=== PATIENT | male | born 1940 | race African-American/Black ===

== ENCOUNTER 2025-02-25 20:54 | Observation (INO) ==
[2025-02-25 21:04] VITALS: BMI 18.1
[2025-02-25 21:23] LABS: RED CELL DISTRIBUTION WIDTH 15.5 % (11.6-16.5)
[2025-02-25 21:29] LABS: MEAN PLATELET VOLUME 8.5 fL (7.4-11.0)
--- NOTE | 2025-02-25 21:52 | DR.EXTPAIN ---
HPI Time seen Time Seen by Provider: 02/25/25 21:50 PCP Primary Care Physician: mary Complaint/Symptoms Chief Complaint Doctor Comments: Patient had a stent placed in his Left leg yesterday by Dr. Richard and he continued to bleed so he was brought here to today to be admitted for further evaluation and treatment. Dr. Richard did come in and see this patient but since he came to the ER i needed to lay eyes on this patient. Chief Complaint:: surgical site bleeding from leg stent placement by Dr. Richard yesterday Self Treatment fo Chief Complaint: stated she added pressure COVID-19 Coronavirus risk:travel/contact w/high risk person: No Has patient experienced Coronavirus symptoms: No Source History Provided: Patient Mode of arrival Mode of Arrival: Wheelchair Timing Onset of Chief Complaint: 02/24/25 PMH PMH Past Medical History: Yes Past Medical History: Hypertension Past Surgical History: Yes Surgical History: No History Past Surgical History Comment: vascular stent Family History History of Family Medical Conditions: No Family Medical History: Diabetes Mellitus Travel Risk Coronavirus risk:travel/contact w/high risk person: No Has patient experienced Coronavirus symptoms: No Infectious screening Have you traveled outside the country in the last 6 months?: No Isolation: Standard ROS Review of Systems Constitutional: Other (still bleeding from stent placed in left thigh yesterday) Eyes: No Symptoms Reported ENTM: No Symptoms Reported Respiratoy: No Symptoms Reported Cardiovascular: No Symptoms Reported Gastrointestinal/Abdominal: No Symptoms Reported Genitourinary: No Symptoms Reported Neurological: No Symptoms Reported Musculoskeletal: No Symptoms Reported Integumentary: Other (bleeding from left upper leg stent) PE Vital Signs Vitals: Vital Signs Temperature 97.6 F Pulse Rate 94 Respiratory Rate 20 Blood Pressure 140/60 O2 Sat by Pulse Oximetry 100 General Limitations: No Limitations General Appearance: In Distress (mild distress) Head Head Exam: Normal Inspection and Atraumatic Eyes Eye exam: Normal Appearance ENT ENT Exam: Normal Exam Neck Neck Exam: Normal Inspection Chest Chest Inspection: Normal Inspection Respiratory Respiratory Exam: Normal Lung Sounds Bilat Cardiovascular Cardiovascular Exam: Regular Rate Abdominal Exam Abdominal Exam: Normal Inspection Extremities Extremities Exam: Other (bleeding from left upper thigh stented area/had pressure dressing and sand bag in place) Upper Extremities Shoulder Exam: Normal Inspection Arm Exam: Normal Inspection Elbow Exam: Normal Inspection Forearm Exam: Normal Inspection Hand Exam: Normal Inspection Lower Extremities Hip/Pelvis Exam: Normal Inspection Upper Leg Exam: Other (bleeding from left upper thigh stented area,now with pressure dressing and sand bag in place) Knee Exam: Normal Inspection Lower Leg Exam: Normal Inspection Ankle Exam: Normal Inspection Foot/Toe Exam: Normal Inspection Gait Exam: Not Tested/Not Observed Back Back Exam: Normal Inspection Neurological Neurological Exam: Alert, Oriented X3 and CN II-XII Intact Psychiatric Psychiatric Exam: Normal Affect Skin Skin Exam: Warm, Dry and Other (bleeding now stopped with dressing and sand bag to left thigh) COURSE Treatment Treatment: Patient patient was brought in to get labs drawn and Dr. Richard had already been in to see this patient he is going to admit this patient for further evaluation and treatment of the bleeding from his left thigh stented area. ROR Labs Reviewed Laboratory Results Reviewed?: Yes 02/25/25 21:16 Laboratory: WBC 17.1 X10^3/uL (3.6-10.0) H 02/25/25 21:16 RBC 4.34 X10^6/uL (4.7-6.0) L 02/25/25 21:16 Hgb 11.4 g/dL (13.5-18.0) L 02/25/25 21:16 Hct 35.4 % (42.0-54.0) L 02/25/25 21:16 MCV 81.5 fL (80.0-100.0) 02/25/25 21:16 MCH 26.3 pg (27.0-34.0) L 02/25/25 21:16 MCHC 32.2 g/dL (33.0-35.0) L 02/25/25 21:16 RDW 15.5 % (11.6-16.5) 02/25/25 21:16 Plt Count 201 X10^3/uL (150.0-450.0) 02/25/25 21:16 MPV 8.5 fL (7.4-11.0) 02/25/25 21:16 Neut % (Auto) 76.8 % (42.0-75.0) H 02/25/25 21:16 Lymph % (Auto) 15.7 % (21.0-51.0) L 02/25/25 21:16 [place] % (Auto) 6.9 % (0.0-13.0) 02/25/25 21:16 Eos % (Auto) 0.0 % (0.9-2.9) L 02/25/25 21:16 Baso % (Auto) 0.6 % (0.2-1.0) 02/25/25 21:16 Neut # (Auto) 13.1 x10^3/uL (2.2-4.8) H 02/25/25 21:16 Lymph # (Auto) 2.7 X10^3/uL (1.3-2.9) 02/25/25 21:16 [place] # (Auto) 1.2 x10^3/uL (0.3-0.8) H 02/25/25 21:16 Eos # (Auto) 0.0 x10^3/uL (0.0-0.2) 02/25/25 21:16 Baso # (Auto) 0.1 X10^3/uL (0.0-0.1) 02/25/25 21:16 Absolute Nucleated RBC 0.1 /100WBC 02/25/25 21:16 Opioid Opioid Risk Tool Age (Coleman box if 16-45): No History of Preadolescent Sexual Abuse: No Total: 0 Total Score Risk Category: Low Risk Copyright: Ishmael COSTELLO predicting aberrant behaviors Discharge Plan Diagnosis Discharge Problem: Occlusion of right popliteal artery, Bleeding from surgical wound Discharge Plan Patient Disposition: 09 ADMITTED INPATIENT Condition: Stable Prescriptions: No Action atorvastatin 10 mg tablet 1 tab PO DAILY Patient Comments: [NO ORIGINAL SIG] amlodipine 2.5 mg tablet 1 tab PO QDAY aspirin [Aspir-81] 81 mg Tablet,Delayed Release (Dr/Ec) 81 mg PO DAILY pantoprazole 40 mg tablet,delayed release (DR/EC) 1 tab PO QDAY metoprolol tartrate 50 mg tablet 1 tab PO BID Patient Comments: [NO ORIGINAL SIG] oxycodone-acetaminophen [Percocet] 5-325 mg Tablet 1 tab PO Q6H MDD 4 PRNQty: 30 0RF Health Concerns: Post Hospitalization: new medications and changes needed to prevent readmission or further decline. Pt educated and given instructions on all concerns. Plan of Treatment: Continue with present treatment and follow up plan. Pt is to keep follow up appointment as instructed and take medications as ordered. Orders to Discharge Patient Discharge Orders: Transfer (Routine); Ordered 02/25/25 Ordered By: Preston Dai Follow ups/Referrals Follow ups/Referrals: DI IRELAND [Primary Care Provider, Unknown] - 3 days Instructions Stand Alone Forms: Find Help Web Site, Post Hospital Follow Up Care Print Language: LITHUANIAN
--- NOTE | 2025-02-25 23:41 | DR.H&P ---
H&P History & Physical for Day of: H&P Date: 02/25/25 Chief Complaint Chief Complaint: Bleeding from puncture site left groin History of Present Illness History of Present Illness: This is an 84-year-old male with significant peripheral vascular disease who has had intervention of arterial structures of both lower extremities in the past. Most recently discovered to have bilateral popliteal artery occlusions with distal reconstruction. Yesterday the patient under arteriogram with on table atherectomy and balloon angioplasty of the popliteal artery, tibioperoneal trunk and the posterior tibial artery on the right side as well as the superficial femoral artery . Patient has done well has a marked relief of pain of the right leg but has had some small amount of bleeding from the puncture site of the left groin despite applying pressure . Patient is on Xarelto and aspirin and he says he has been taking it. 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 Past Surgical History Surgical History: Other Family History Family Medical History: Diabetes Mellitus Social History Does patient currently use any type of tobacco product: Yes Type of Tobacco Use: Cigarettes How many years tobacco product used: 50 Does any household member use tobacco: No Alcohol Use: None Drug Use: None Medications Home Medications: Home Medications Medication Instructions Recorded Confirmed Type amlodipine 2.5 mg tablet 1 tab PO QDAY 01/31/2202/25 History aspirin 81 mg tablet,delayed 81 mg PO DAILY 01/31/22 1 History release atorvastatin 10 mg tablet 1 tab PO DAILY 01/31/22/08/27 History metoprolol tartrate 50 mg tablet 1 tab PO BID 01/31/22 02/25/25 History pantoprazole 40 mg tablet,delayed 1 tab PO QDAY 02/25/25 History release Allergies Allergies Allergy/AdvReac Type Severity Reaction Status Date / Time No Known Drug Allergies Allergy Verified 01/31/22 09:34 Labs 02/25/25 21:16 Labs: Laboratory WBC 17.1 X10^3/uL (3.6-10.0) H 02/25/25 21:16 RBC 4.34 X10^6/uL (4.7-6.0) L 02/25/25 21:16 Hgb 11.4 g/dL (13.5-18.0) L 02/25/25 21:16 Hct 35.4 % (42.0-54.0) L 02/25/25 21:16 MCV 81.5 fL (80.0-100.0) 02/25/25 21:16 MCH 26.3 pg (27.0-34.0) L 02/25/25 21:16 MCHC 32.2 g/dL (33.0-35.0) L 02/25/25 21:16 RDW 15.5 % (11.6-16.5) 02/25/25 21:16 Plt Count 201 X10^3/uL (150.0-450.0) 02/25/25 21:16 MPV 8.5 fL (7.4-11.0) 02/25/25 21:16 Neut % (Auto) 76.8 % (42.0-75.0) H 02/25/25 21:16 Lymph % (Auto) 15.7 % (21.0-51.0) L 02/25/25 21:16 [place] % (Auto) 6.9 % (0.0-13.0) 02/25/25 21:16 Eos % (Auto) 0.0 % (0.9-2.9) L 02/25/25 21:16 Baso % (Auto) 0.6 % (0.2-1.0) 02/25/25 21:16 Neut # (Auto) 13.1 x10^3/uL (2.2-4.8) H 02/25/25 21:16 Lymph # (Auto) 2.7 X10^3/uL (1.3-2.9) 02/25/25 21:16 [place] # (Auto) 1.2 x10^3/uL (0.3-0.8) H 02/25/25 21:16 Eos # (Auto) 0.0 x10^3/uL (0.0-0.2) 02/25/25 21:16 Baso # (Auto) 0.1 X10^3/uL (0.0-0.1) 02/25/25 21:16 Absolute Nucleated RBC 0.1 /100WBC 02/25/25 21:16 Review of Systems Constitutional: See HPI Eyes: No Symptoms Reported ENT: No Symptoms Reported Respiratory: No Symptoms Reported Cardiovascular: No Symptoms Reported and Other (Bleeding from left femoral artery stick, Angio-Seal device had been placed at the time of the procedure) Gastrointestinal: No Symptoms Reported Genitourinary: No Symptoms Reported Musculoskeletal: No Symptoms Reported Skin: No Symptoms Reported Neurological: No Symptoms Reported Physical Exam Vital Signs: Vital Signs Temperature 97.6 F Pulse Rate [Right Brachial] 69 Pulse Rate 94 Respiratory Rate 20 Respiratory Rate 20 Respiratory Rate 20 Blood Pressure [Left Arm] 118/59 Blood Pressure 140/60 O2 Sat by Pulse Oximetry 99 O2 Sat by Pulse Oximetry 100 Oriented: Normal, Person and Place Eyes: Normal Ear: Normal Nose: Normal Throat: Normal Respiratory: Clear Throughout Cardiovascular: Normal : Normal Auscultation: Bowel Sounds: Normal Palpation: Normal Tenderness: Normal Skin: Wound (Small area of bleeding from the puncture site of the left groin. No obvious hematoma.) Musculoskeletal: Normal Psychiatric: Normal Mood Description: Calm Affect: Normal Speech Pattern: Clear Assessment/Plan (1) Bleeding from surgical wound: Status: Acute Plan: [place] stable. Will apply pressure to the groin and re-evaluate wound in the morning. Will check coag studies in addition to CBC (2) Occlusion of right popliteal artery: Status: Acute Plan: resolved (3) Essential (primary) hypertension: Status: Acute Plan: home medications (4) Gastro-esophageal reflux disease without esophagitis: Status: Acute Plan: home medICATIONS Review H&P Reviewed: Yes Patient was examined?: Yes
[2025-02-26] MEDS: LR 1,000 ML IV 1,000 ML IV SCH (01:00)
[2025-02-26 05:07] LABS: MEAN PLATELET VOLUME 9.0 fL (7.4-11.0)
[2025-02-26 05:10] LABS: INR 1.11 (0.8-1.3)
[2025-02-26 05:25] LABS: RED CELL DISTRIBUTION WIDTH 15.2 % (11.6-16.5)
[2025-02-26] MEDS ORDERED: NORVASC TAB 2.5 MG ONE (08:05)
[2025-02-26] MEDS: ASPIRIN EC 81 MG PO SCH (08:36)
[2025-02-26] MEDS: LIPITOR TAB 20 MG PO SCH (08:36)
[2025-02-26] MEDS: TOPROL XL PO SCH (08:36)
[2025-02-26] MEDS: NORVASC TAB 2.5 MG PO SCH (08:36)
[2025-02-26] MEDS: PROTONIX TAB 40 MG PO SCH (08:36)
[2025-02-27 06:21] LABS: MEAN PLATELET VOLUME 8.5 fL (7.4-11.0); RED CELL DISTRIBUTION WIDTH 15.3 % (11.6-16.5)
[2025-02-27] MEDS ORDERED: NORVASC TAB 2.5 MG ONE (08:22)
[2025-02-27 12:23] VITALS: PULSE 61; TEMP 98
[2025-02-28 12:00] VITALS: BP 127/61; RESP 18; O2SAT 99
--- NOTE | 2025-02-28 12:01 | NOTE.SOAP ---
Soap Note Note for Day of Date of Exam: 02/26/25 Subjective Data Subjective Data: Patient status post arterial mention of the right leg through a left femoral artery stick. Patient had some bleeding from the area and was admitted for observation. The says it is still bleeding on my examination I see no further bleeding and there is no hematoma. Objective Data Temperature: 98.0 F Pulse Rate: 61 Respiratory Rate: 18 Blood Pressure: 127/61 O2 Sat by Pulse Oximetry: 99 Objective Data: as above , Hemoglobin increased to 10.3 from 10.1. INR=1.11 ( normal) Assessment Assessment: Bleeding from left femoral artery puncture site. Appears to have stopped. Will observe today and if stable discharge tomorrow Plan Plan: as above
--- NOTE | 2025-02-28 12:06 | W.DIS.FURT ---
Summary of Discharge Discharge Summary of Date Date of Exam: 02/27/25 Admission Date Date of Admission: 02/25/25 Admission Diagnosis Patient Problems (Updated 02/25/25 @ 23:39 by Oneal Richard) Bleeding from surgical wound (Acute) Occlusion of right popliteal artery (Acute) I70.201 Hospital Course: This is an 84-year-old male who undergone arterial invention on 02/24 of the right leg via left femoral artery sticks with atherectomy and drug-coated balloon angioplasty of the right posterior tibial artery, the tibioperoneal trunk, the popliteal artery and the distal superficial femoral artery. He reported some continued bleeding from the puncture site and it did not stop with pressure at home therefore ,he came to the emergency room for evaluation. He had a small area of bleeding from this with no surrounding hematoma. INR was normal and hemoglobin was stable. Patient admitted for observation and we applied pressure to this area. The next day it appears to have stopped and on Friday the date of discharge ,February 27, he had no further bleeding for greater than 24 hours and the family was satisfied and he was discharged to home. He returned his usual medication including Xarelto and aspirin. He already has a follow-up made to see me next week. Vital Signs: Vital Signs (72 hours) 02/25/25 20:57 02/25/25 22:22 02/25/25 22:30 Temperature 97.6 F Pulse Rate 94 H Pulse Rate [Right Brachial] Respiratory Rate 20 20 Blood Pressure 140/60 Blood Pressure [Left Arm] Blood Pressure [Right Arm] O2 Sat by Pulse Oximetry 100 Oxygen Delivery Method Room Air 02/25/25 22:34 02/26/25 00:00 02/26/25 04:00 Temperature 98 F 98.1 F Pulse Rate Pulse Rate [Right Brachial] 69 65 65 Respiratory Rate 20 16 18 Blood Pressure Blood Pressure [Left Arm] 118/59 Blood Pressure [Right Arm] 130/63 125/57 O2 Sat by Pulse Oximetry 99 95 100 Oxygen Delivery Method Room Air Room Air Room Air 02/26/25 07:00 02/26/25 08:00 02/26/25 12:00 Temperature 98.3 F 98.0 F Pulse Rate Pulse Rate [Right Brachial] 82 61 Respiratory Rate 18 18 Blood Pressure Blood Pressure [Left Arm] Blood Pressure [Right Arm] 146/67 127/61 O2 Sat by Pulse Oximetry 99 99 Oxygen Delivery Method Room Air Room Air Room Air 02/26/25 16:00 02/26/25 19:00 02/26/25 20:00 Temperature 98.1 F 98.1 F Pulse Rate Pulse Rate [Right Brachial] 66 63 Respiratory Rate 19 18 Blood Pressure Blood Pressure [Left Arm] Blood Pressure [Right Arm] 125/58 162/70 O2 Sat by Pulse Oximetry 98 98 Oxygen Delivery Method Room Air Room Air Room Air 02/27/25 00:00 02/27/25 04:00 02/27/25 07:00 Temperature 98.1 F 98.3 F Pulse Rate Pulse Rate [Right Brachial] 66 60 Respiratory Rate 19 18 Blood Pressure Blood Pressure [Left Arm] Blood Pressure [Right Arm] 135/65 155/73 O2 Sat by Pulse Oximetry 98 100 Oxygen Delivery Method Room Air Room Air Room Air 02/27/25 08:00 02/27/25 12:00 02/28/25 11:59 Temperature 98.1 F 98.0 F 98.0 F Pulse Rate 61 Pulse Rate [Right Brachial] 68 61 Respiratory Rate 19 19 18 Blood Pressure 127/61 Blood Pressure [Left Arm] Blood Pressure [Right Arm] 140/61 155/73 O2 Sat by Pulse Oximetry 100 99 Oxygen Delivery Method Room Air Room Air Labs: Laboratory Last Values WBC 9.9 X10^3/uL (3.6-10.0) 02/27/25 05:44 RBC 3.82 X10^6/uL (4.7-6.0) L 02/27/25 05:44 Hgb 10.3 g/dL (13.5-18.0) L 02/27/25 05:44 Hct 31.2 % (42.0-54.0) L 02/27/25 05:44 MCV 81.8 fL (80.0-100.0) 02/27/25 05:44 MCH 27.0 pg (27.0-34.0) 02/27/25 05:44 MCHC 33.1 g/dL (33.0-35.0) 02/27/25 05:44 RDW 15.3 % (11.6-16.5) 02/27/25 05:44 Plt Count 79 X10^3/uL (150.0-450.0) L 02/27/25 05:44 MPV 8.5 fL (7.4-11.0) 02/27/25 05:44 Neut % (Auto) 56.4 % (42.0-75.0) 02/27/25 05:44 Lymph % (Auto) 37.4 % (21.0-51.0) 02/27/25 05:44 [place] % (Auto) 3.8 % (0.0-13.0) 02/27/25 05:44 Eos % (Auto) 1.7 % (0.9-2.9) 02/27/25 05:44 Baso % (Auto) 0.7 % (0.2-1.0) 02/27/25 05:44 Neut # (Auto) 5.6 x10^3/uL (2.2-4.8) H 02/27/25 05:44 Lymph # (Auto) 3.7 X10^3/uL (1.3-2.9) H 02/27/25 05:44 [place] # (Auto) 0.4 x10^3/uL (0.3-0.8) 02/27/25 05:44 Eos # (Auto) 0.2 x10^3/uL (0.0-0.2) 02/27/25 05:44 Baso # (Auto) 0.1 X10^3/uL (0.0-0.1) 02/27/25 05:44 Absolute Nucleated RBC 0.1 /100WBC 02/27/25 05:44 PT 14.4 SECONDS (11.8-14.3) 02/26/25 04:36 INR Target Range - 02/26/25 04:36 INR 1.11 (0.8-1.3) 02/26/25 04:36 APTT 26.7 SECONDS (22.9-36.5) 02/26/25 04:36 PTT Comment - 02/26/25 04:36 Reason For Visit: R FEMORAL ARTERY OCCLUSION, BLEEDING FROM SURGICAL Discharge Date Discharge Date: 02/27/25 Discharge Diagnosis All Active Problems (Updated 02/25/25 @ 23:39 by Oneal Richard) Gastro-esophageal reflux disease without esophagitis (Acute) Essential (primary) hypertension (Acute) Bleeding from surgical wound (Acute) Occlusion of right popliteal artery (Acute) Abnormal MRI scan, bone (Acute) Plan of Treatment: Continue with present treatment and follow up plan. Pt is to keep follow up appointment as instructed and take medications as ordered. Discharge Medications Discharge Medications: No Known Drug Allergies Allergy (Verified 01/31/22 09:34) Discharge Disposition Assessment: see hospital course Discharge Plan Discharge Plan Hospital Course: This is an 84-year-old male who undergone arterial invention on 02/24 of the right leg via left femoral artery sticks with atherectomy and drug-coated balloon angioplasty of the right posterior tibial artery, the tibioperoneal trunk, the popliteal artery and the distal superficial femoral artery. He reported some continued bleeding from the puncture site and it did not stop with pressure at home therefore ,he came to the emergency room for evaluation. He had a small area of bleeding from this with no surrounding hematoma. INR was normal and hemoglobin was stable. Patient admitted for observation and we applied pressure to this area. The next day it appears to have stopped and on Friday the date of discharge ,February 27, he had no further bleeding for greater than 24 hours and the family was satisfied and he was discharged to home. He returned his usual medication including Xarelto and aspirin. He already has a follow-up made to see me next week. Patient Disposition: HOME, SELF-CARE Condition: Stable Health Concerns: Post Hospitalization: new medications and changes needed to prevent readmission or further decline. Pt educated and given instructions on all concerns. Plan of Treatment: Continue with present treatment and follow up plan. Pt is to keep follow up appointment as instructed and take medications as ordered. Assessment: see hospital course Prescription drug monitoring program results: PDMP was not reviewed Prescriptions: Continued atorvastatin 10 mg tablet 1 tab PO DAILY Patient Comments: [NO ORIGINAL SIG] amlodipine 2.5 mg tablet 1 tab PO QDAY aspirin [Aspir-81] 81 mg Tablet,Delayed Release (Dr/Ec) 81 mg PO DAILY pantoprazole 40 mg tablet,delayed release (DR/EC) 1 tab PO QDAY metoprolol tartrate 50 mg tablet 1 tab PO BID Patient Comments: [NO ORIGINAL SIG] oxycodone-acetaminophen [Percocet] 5-325 mg Tablet 1 tab PO Q6H MDD 4 PRNQty: 30 0RF Orders to Discharge Patient Discharge Orders: Discharge (Routine); Ordered 02/27/25 Ordered By: Oneal Richard Follow ups/Referrals Follow ups/Referrals: DI IRELAND [Primary Care Provider, Unknown] - 3 days Instructions Stand Alone Forms: Excuse From Work or School, Find Help Web Site, Post Hospital Follow Up Care Print Language: [place]
== END 2025-02-27 14:35 | disposition home or self-care (01) ==
LOC: MED/SURG 20:54 → ER 20:54 → MED/SURG 22:43
PROVIDERS: ADMIT Surgery; ATTEND Surgery
DX: Z98.890 Other specified postprocedural states; Z72.0 Tobacco use; D72.828 Other elevated white blood cell count; I10 Essential (primary) hypertension; M19.90 Unspecified osteoarthritis, unspecified site; I97.618 Postprocedural hemorrhage of a circulatory system organ or structure following other circulatory system procedure; I70.201 Unspecified atherosclerosis of native arteries of extremities, right leg; K21.9 Gastro-esophageal reflux disease without esophagitis; E78.5 Hyperlipidemia, unspecified